=== PATIENT | female | born 1960 | race Caucasian/White ===

== ENCOUNTER 2021-06-04 06:30 | Day surgery (SDC) | payer BC ==
[~2021-06-04] VITALS: Ht 177.8 cm; Wt 130.9 kg
[~2021-06-04 06:30] MED LIST: CYTOMEL5 MCG PO; FLUOXETINE DR90 MG PO; FLUOXETINE HCL40 MG PO; HYDROCHLOROTHIA50 MG PO; MACRODANTIN100 MG PO; SYNTHROID150 MCG PO
--- NOTE | 2021-06-04 07:36 | NUR ---
Nurse indicated pt had just received medication to aid relaxation. PT responded to my greeting and agreed to prayer. Prayed for peace and confidence for pt and skill for caregivers. Wished pt well and exited room.
--- NOTE | 2021-06-04 08:58 | NUR ---
AMBULATED TO BR WITH ONE PERSON STAND BY ASSIST. STEADY ON FEET. VOIDED UNMEASURED URINE. RETURNED TO BED, RAILS UP, CALL LIGHT AT SIDE. BP LOWER NOW.
--- NOTE | 2021-06-04 11:27 | NUR ---
06/04/21 1127 Rae Kearney 1113 PT ARRIVED IN PACU SLEEPY WITH NO C/O'S. 1125 RESTING. REU.
--- NOTE | 2021-06-04 12:39 | NUR ---
SARMIENTO REMOVED PER MD ORDER AT 1230. MEDICATED FOR NAUSEA PER EMAR. REFUSES OFFER OF PRN MEDICATION FOR 3/10 PAIN.
--- NOTE | 2021-06-04 12:52 | NUR ---
PT DESATURATES TO 88% O2 ON ROOM AIR WITH SLEEP. SHE REPORTS SHE HAS SLEEP APNEA BUT DOES NOT USE HER CPAP BECAUSE SHE DOES NOT LIKE IT. SYMPTOMS OF YOVANI NOTED. 2L O2 STARTED PT IS SLEEPY. REPORTS NAUSEA IS DECREASING.
--- NOTE | 2021-06-04 12:57 | NUR ---
SPO2 97% WHILE SLEEPING/ SNORING WITH 2L O2 IN PLACE.
--- NOTE | 2021-06-04 13:58 | NUR ---
STEADY ON FEET WITH ONE PERSON STAND BY ASSIST. DENIES NAUSEA OR PAIN. AMBULATES TO BR WITHOUT PROBLEMS.
--- NOTE | 2021-06-07 14:17 | OR ---
[facility] [address] [place], [place] [address] Signed DATE OF OPERATION: 06/04/2021 SURGEON: Annie Coyne MD DATE OF PROCEDURE: 06/03/2021 PREOPERATIVE DIAGNOSES: 1. Recurrent urinary tract infections. 2. Incomplete bladder emptying. 3. Bladder outlet obstruction, secondary to indwelling midurethral sling. POSTOPERATIVE DIAGNOSES: 1. Recurrent urinary tract infections. 2. Incomplete bladder emptying. 3. Bladder outlet obstruction, secondary to indwelling midurethral sling. NAMES OF PROCEDURES: 1. Diagnostic cystoscopy. 2. Release of polypropylene mesh, midurethral sling. 3. Skin tag excision. ANESTHESIA: General. ESTIMATED BLOOD LOSS: 50 mL. COMPLICATIONS: None. SPECIMENS: Skin tag sent to pathology for evaluation. DRAINS: A 16-Lao two-way Bobo catheter, connected to gravity drainage. INDICATION FOR PROCEDURE: Ms. Marino is a very pleasant 60-year-old female with a history of transvaginal midurethral sling placement many years ago, who presented to me with history of Electronically Signed By: ANNIE COYNE MD 06/07/21 1417 PATIENT NAME: JAIDA MARINO OPERATIVE REPORT DATE OF : 58 REPORT #: [id number] PHYSICIAN: ANNIE COYNE MD PCP: NO PRIMARY CARE PHYSICIAN REPORT IS CONFIDENTIAL AND NOT TO BE RELEASED WITHOUT AUTHORIZATION [facility] [address] [place] [address] [place], [place] [address] Signed recurrent urinary tract infections and incomplete bladder emptying. She also reported urinary urgency and frequency symptoms. She subsequently underwent diagnostic cystoscopy followed by formal urodynamic studies which indicated that she was experiencing active bladder outlet obstruction secondary to the presence of her midurethral sling. After discussion of the risks and benefits of the procedure, the patient agreed to undergo release of her midurethral sling. She was informed of the approximately 15 to 20% risk of recurrence of her stress urinary incontinence symptoms after release of her sling. She was also informed of the risk of damage to the urethra and excessive bleeding. She understands these risks and would like to proceed today. OPERATIVE FINDINGS: 1. The patient's midurethral sling was found relatively quickly around 1 cm just inferior to her urethral meatus. It appeared to be a polypropylene mesh sling and it was isolated easily using a right angle. Approximately 1 cm of the mesh sling was excised from just under the patient's urethra in the anterior vaginal wall. 2. Diagnostic cystoscopy was performed after release of the sling, which revealed no evidence of iatrogenic damage to the urethra. The bilateral ureteral jets were in their normal anatomic location effluxing clear urine. There was also no evidence of any suspicious masses or lesions within the bladder. 3. The patient had a 1 cm sized skin tag present on the right labia. This was removed using a 15 blade and a minor amount of electrocautery was used for hemostasis after removal of the skin tag. This was performed without difficulty. DESCRIPTION OF PROCEDURE: After informed consent was obtained, the patient was taken back to the operating room. She was transferred from the [facility] to the operating room table, where general anesthesia was induced. She was placed in the high dorsal lithotomy position and her genitalia were prepped and draped in a standard sterile fashion. She was then placed in a slight Trendelenburg position to allow for better visualization of the anterior vaginal wall. A Dominic retractor was then placed over the operative site, and a 16-Lao Bobo catheter was inserted into the patient's bladder and the bladder was completely drained of urine. The catheter was then set aside out of the operative field. Once hooks were used to retract the labia from the anterior vaginal wall, I then proceeded with injection of 0.25% Marcaine into the anterior vaginal wall. A total of 10 mL was injected into the anterior vaginal wall for hydrodissection purposes. Using a 15 blade, I then made a 2 cm incision just around 1 cm inferior from the urethral meatus. This incision was dissected down just very slightly using the blade until I was able to palpate the sling. A combination of dissection and very careful use of the 15 blade, I was able to reveal more of the mesh of the midurethral sling. Once I saw the inferior edge of the sling, I was able to use a right angle to get under the sling and pull it away a bit from the anterior vaginal wall. This was done without difficulty. I then dissected laterally on both sides to free up more of the midurethral sling. Electronically Signed By: ANNIE COYNE MD 06/07/21 1417 PATIENT NAME: JAIDA MARINO OPERATIVE REPORT DATE OF : 58 REPORT #: [id number] PHYSICIAN: ANNIE COYNE MD PCP: NO PRIMARY CARE PHYSICIAN REPORT IS CONFIDENTIAL AND NOT TO BE RELEASED WITHOUT AUTHORIZATION [facility] [address] [place] [id number] Signed Overall, I was able to free of about 1.5 cm worth of sling. I chose not to dig any further laterally as to disrupt any blood vessels in this area. About 1.5 cm worth of sling released. I placed 2 hemostats, one on each edge of the visible portion of the sling. I then removed approximately 1 cm worth of the midurethral sling using Metzenbaum scissors. The bladder neck did release somewhat when the sling was incised. I then released the edges of the sling once I was satisfied that I had obtained enough of the sling to be sent for pathologic confirmation. I then used some sterile water to irrigate the anterior vaginal wall. FloSeal was then injected into the obturator fossa on both sides to prevent any additional bleeding. The Bobo catheter was removed and diagnostic cystoscopy was performed. Please see above findings. Cystoscopy confirmed that there was no evidence of any iatrogenic injury to the urethra during extraction of the midurethral sling. The Bobo catheter was then reinserted. The anterior vaginal wall incision was closed in a simple interrupted fashion using 3-0 Vicryl. Vaginal packing was then placed and the Bobo catheter again was placed on gravity drainage. I then turned my attention to the 1 cm sized skin tag present on the inferior portion of the right labia. This was removed using a 15 blade. Minor electrocautery was then used for hemostasis and then one simple interrupted 3-0 Vicryl stitch was placed in the area of the skin tag. Bacitracin was then applied to this area. The procedure was then completed. The patient tolerated the procedure well without any complication. She will now be transferred to the postanesthesia care unit in stable condition. DISPOSITION: I discussed the details of today's procedure with the patient's daughter and answered all of her questions. I recommended that Jaida not return to work until June 18, 2021, at which time she may be given restricted duty (AKA light duty). She may return to work full duty approximately 1 to 2 weeks later. She will be sent home today with oxycodone 5 mg one tablet p.o. q.6 hours p.r.n. pain, dispense #30, along with Keflex 750 mL p.o. b.i.d. for a total of 7 days. She will return to clinic in late June for her first postoperative evaluation. Annie Coyne MD AR/MODL /[id number] Electronically Signed By: ANNIE COYNE MD 06/07/21 1417 PATIENT NAME: JAIDA MARINO TERESA OPERATIVE REPORT DATE OF : 58 REPORT #: [id number] PHYSICIAN: ANNIE COYNE MD PCP: NO PRIMARY CARE PHYSICIAN REPORT IS CONFIDENTIAL AND NOT TO BE RELEASED WITHOUT AUTHORIZATION [address] [place], [place] [address] Signed Copies: ~ Electronically Signed By: ANNIE COYNE MD 06/07/21 1417 PATIENT NAME: JAIDA MARINO OPERATIVE REPORT DATE OF : 58 REPORT #: [id number] PHYSICIAN: ANNIE COYNE MD PCP: NO PRIMARY CARE PHYSICIAN REPORT IS CONFIDENTIAL AND NOT TO BE RELEASED WITHOUT AUTHORIZATION
--- NOTE | 2021-06-08 16:03 | PATH ---
[facility] [address] [place], [place] [address] Signed SPECIMEN(S): A RIGHT LABIAL SKIN TAG SPECIMEN(S): B EXPOSED VAGINAL MESH SPECIMEN SOURCE: A. RIGHT LABIAL SKIN TAG B. EXPOSED VAGINAL MESH CLINICAL HISTORY: Diagnostic cystoscopy, incisional suburethral sling with excision of skin tag. Pre: Bladder outlet obstruction. Post: Excision vaginal mesh, excision skin tag. FINAL PATHOLOGIC DIAGNOSIS: A. Labial skin tag, right, excision: - Fibroepithelial polyp. B. Exposed vaginal mesh, excision: - Surgical mesh material embedded within fibrovascular connective tissue with associated chronic inflammation and foreign body-type giant cell reaction. NAL:vlg:[id number] MICROSCOPIC EXAMINATION: Histologic sections of all submitted blocks are examined by light microscopy. These findings, together with the gross examination, support the pathologic diagnosis. Regarding specimen A: A melan-A immunohistochemical stain (with appropriately staining controls) is negative for a melanocytic proliferation. GROSS DESCRIPTION: Two specimens are received in two containers, labeled "DM." A. The specimen, labeled "DM, A.," and designated on the requisition "right labial skin tag," is received in formalin and consists of pink-gomez, wrinkled skin tag (1.4 x 1.0 x 0.5 cm). The resection margin is inked blue and the specimen is bisected and submitted entirely in cassette (A1). B. The specimen, labeled "DM, B.," and designated on the requisition "exposed vaginal mesh," is received in formalin and consists of three fragments of pink-gomez soft tissue with blue mesh material (2.6, 0.8, and 1.1 cm in greatest dimension). The specimen is submitted entirely in cassette (B1). AC (under the direct supervision of a pathologist) The Gross Description was prepared using a voice recognition system. The report PATIENT NAME: MAURA MARINO PATHOLOGY DATE OF : 58 REPORT #: [id number] PHYSICIAN: NICHELLE PATHOLOGY PCP: NO PRIMARY CARE PHYSICIAN REPORT IS CONFIDENTIAL AND NOT TO BE RELEASED WITHOUT AUTHORIZATION [facility] [address] [place], [place] [address] Signed was reviewed for accuracy; however, sound-alike word errors, addition and/or deletions may occur. If there is any question about this report, please contact Client Services. PERFORMING LABORATORY: The technical component was performed by [facility] [address] [address] (Junior Web Designer: Bharti Hanson MD; CLIA# [id number]). Professional interpretation was performed by [facility], [address] [address] (CLIA# [id number]). Diagnostician: Renetta Casillas MD Pathologist Electronically Signed 06/08/2021 Copies: ~ PATIENT NAME: MAURA MARINO PATHOLOGY DATE OF : 58 REPORT #: [id number] PHYSICIAN: NICHELLE LAGUERRE PCP: NO PRIMARY CARE PHYSICIAN REPORT IS CONFIDENTIAL AND NOT TO BE RELEASED WITHOUT AUTHORIZATION
== END 2021-06-04 14:30 | disposition home or self-care (01) ==
LOC: OPS 06:30 → DS 06:30 → OPS 06:45
PROVIDERS: ATTEND Urology
PROC: 0HB9XZZ Excision of Perineum Skin, External Approach (ICD-10-PCS; 2021-06-04)
PROC: 0TP Urinary System, Removal (ICD-10-PCS; principal; 2021-06-04 08:55)
PROC: 0TJB8ZZ Inspection of Bladder, Via Natural or Artificial Opening Endoscopic (ICD-10-PCS; 2021-06-04 08:55)
DX: T83.098A Other mechanical complication of other urinary catheter, initial encounter (principal); N32.0 Bladder-neck obstruction; N39.0 Urinary tract infection, site not specified; N84.3 Polyp of vulva; L91.8 Other hypertrophic disorders of the skin; R33.9 Retention of urine, unspecified; I10 Essential (primary) hypertension; E78.5 Hyperlipidemia, unspecified; E89.0 Postprocedural hypothyroidism; Z96.0 Presence of urogenital implants; Z87.440 Personal history of urinary (tract) infections
CPT/HCPCS: 00860; J0360; J0690; J1885; J2250; J2405; J2704; J3010